=== PATIENT | male | born 2000 | race Caucasian/White ===

== ENCOUNTER 2021-07-27 08:49 | Emergency (ER) | payer MEDICAID, OTHER ==
[2021-07-27] MEDS ORDERED: Diphtheria,Pertussis(Acell),Tetanus Vaccine 0.5 ML Syringe IM ONE (09:35)
[2021-07-27] MEDS ORDERED: Lidocaine 1% 10 ML MDV INJECT ONE (09:50)
== END 2021-07-27 12:26 | disposition home or self-care (01) ==
LOC: JD.ED 08:49
DX: S61.512A Laceration without foreign body of left wrist, initial encounter (principal); S60.012A Contusion of left thumb without damage to nail, initial encounter; Z23 Encounter for immunization; W20.8XXA Other cause of strike by thrown, projected or falling object, initial encounter
CPT/HCPCS: 12001; 73110-26-LT; 73110-LT; 73140-26-FA; 73140-FA; 90471; 90715; 99283-25